=== PATIENT | female | born 2000 | race Caucasian/White ===

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

== ENCOUNTER 2021-07-07 11:45 | Emergency (ER) | payer OTHER ==
[2021-07-07 12:28] VITALS: TEMP 98.3; BMI 26.5
[2021-07-07] MEDS ORDERED: SODIUM CHLORIDE 1,000 ML IV STA (12:56)
[2021-07-07 13:57] LABS: BASO % 0.7 % (0-2.0); EOS % 0.8 % (0-4.5); HEMATOCRIT 42.4 % (32.4-45.2); LYMPH % 15.2 % (8-40); MCH 30.1 pg (25.7-33.7); MCHC 32.9 g/dl (32.0-36.0); MEAN CELL VOLUME 91.5 fl (80-96); MEAN PLT VOLUME 7.5 fl (7.5-11.1); MONO % 8.1 % (3.8-10.2); NEUT % 75.2 % (42.8-82.8); PLATELET COUNT 380 10^3/uL (134-434); RBC 4.64 M/mm3 (3.60-5.2); RDW 13.4 % (11.6-15.6); WHITE BLOOD COUNT 7.7 K/mm3 (4.0-10.0)
[2021-07-07 14:11] LABS: CHLORIDE 107 mmol/L (98-107); SODIUM 141 mmol/L (136-145)
[2021-07-07 14:13] LABS: CALCIUM 9.7 mg/dL (8.5-10.1); INR 1.09 (0.83-1.09); PROTHROMBIN TIME (PATIENT) 12.8 SEC (9.7-13.0)
[2021-07-07 14:14] LABS: ALBUMIN 3.8 g/dl (3.4-5.0); ANION GAP 7 MMOL/L (8-16); CO2 27 mmol/L (21-32); GLUCOSE,RANDOM 85 mg/dL (74-106); MAGNESIUM 2.3 mg/dL (1.8-2.4)
[2021-07-07 14:15] LABS: ACTIVATED PTT 28.3 SECONDS (25.2-36.5)
[2021-07-07 14:16] LABS: SGPT/ALT 17 U/L (13-61)
[2021-07-07 14:17] LABS: CREATININE 0.6 mg/dL (0.55-1.3); SGOT/AST 13 U/L (15-37)
[2021-07-07 14:18] LABS: BILIRUBIN,TOTAL 0.5 mg/dL (0.2-1)
[2021-07-07 14:19] LABS: ALK PHOS 83 U/L (45-117)
[2021-07-07 15:11] LABS: EPI CELLS 27 /uL (0-25.1); HYALINE CASTS 6 /uL (0-3.1); URINE APPEARANCE TURBID; URINE BACTERIA 1180 /uL (0-1359); URINE BILIRUBIN NEGATIVE (NEGATIVE); URINE COLOR YELLOW; URINE GLUCOSE (UA) NEGATIVE (NEGATIVE); URINE KETONE NEGATIVE (NEGATIVE); URINE LEUK ESTERASE 2+ (NEGATIVE); URINE NITRITE NEGATIVE (NEGATIVE); URINE PROTEIN TRACE (NEGATIVE); URINE RBC 25 /uL (0-23.9); URINE WBC 170 /uL (0-25.8)
[2021-07-07 15:12] LABS: HCG,QUALITATIVE URINE Negative
[2021-07-07 15:17] VITALS: BP 120/66; PULSE 88
== END 2021-07-07 15:17 | disposition home or self-care (01) ==
LOC: JER 11:45
PROC: 3E0337Z Introduction of Electrolytic and Water Balance Substance into Peripheral Vein, Percutaneous Approach (ICD-10-PCS; principal; 2021-07-07)
DX: R07.89 Other chest pain (principal); N92.6 Irregular menstruation, unspecified
CPT/HCPCS: 36415; 76817-TC; 80053; 81003; 82550; 83735; 84484; 84702; 84703; 85025; 85379; 85610; 85730; 86850; 86900; 86901; 93005; 93010; 99285-25